=== PATIENT | female | born 2000 | race Caucasian/White ===

== ENCOUNTER 2018-06-27 16:43 | Emergency (ER) | payer OTHER ==
[~2018-06-27] VITALS: Ht 167.6 cm; Wt 90.0 kg
[2018-06-27 17:21] VITALS: BP 136/74
== END 2018-06-27 19:45 | disposition left against medical advice (07) ==
LOC: EMS 16:44
DX: M25.552 Pain in left hip (principal); Z53.21 Procedure and treatment not carried out due to patient leaving prior to being seen by health care provider